=== PATIENT | male | born 1990 | race Caucasian/White ===

== ENCOUNTER 2024-01-10 11:55 | Outpatient (AMB) | payer OTHER, SELFPAY ==
--- NOTE | 2024-01-10 12:02 | AM.OFFWIN_ITS ---
Intake Vital Signs 01/10/24 12:07 01/10/24 12:55 Height 5 ft 6 in Weight 237 lb 4 oz BMI 38.3 BP 142/102 H Blood Pressure Location Lt brachial Position Sitting Pulse 122 H 104 H Pulse Source Pulse Oximeter Auscultation Temp 98.1 F Temp Source Oral Pulse Oximetry (%) 100 Oxygen Delivery Method Room Air Intake Visit Reasons: [employer] Loss of voice Intake Note: Pt is here today for sore through been for about 2wks Patient Tobacco Use Status: Never used Tobacco Allergies No Known Allergies Allergy (Verified 01/10/24 12:08) HPI HPI Comments History of Present Illness Details Patient presents to the walk-in today for sick visit Complaints of sore throat for last 5 days Denies known sick contacts Reports loss of voice when he's at work and must speak loudly for hours Tolerating p.o., denies nausea, vomiting Denies headaches, fevers, chest pain, syncope, dizziness, weakness or difficulty managing secretions PFSH Social History Patient Tobacco Use Status: Never used Tobacco Review of Systems Const All systems reviewed & are unremarkable except as noted in HPI and below Physical Exam Vital Signs: Last Vital Signs Temp 98.1 F 01/10/24 12:07 Pulse 122 H 01/10/24 12:07 BP 142/102 H 01/10/24 12:07 Pulse Ox 100 01/10/24 12:07 Oxygen Delivery Method Room Air 01/10/24 12:07 BMI result Body Mass Index 38.3 General: awake, alert, oriented. Answers questions appropriately. Fully engaged in examination. Skin: warm, dry, intact HEENT: TMs intact bilaterally, no redness. Posterior pharynx without erythema or exudate. Moist oral mucosa. Sclera without icterus or injection. Cardiac: External chest normal in appearance. Respiratory: LSCTAB. Abdomen: without gross distension. Neurological: Oriented to person, place, time and situation. Thought process intact. Psychiatric: Appropriate mood and affect. Good judgment and insight. Results AMB Rapid Strep AMB Rapid Strep Negative Last Edit by Dutch Abdi CMA on 01/10/24 12 :39 Assessment & Plan Assessment & Plan (1) Pharyngitis: Code(s): J02.9 - Acute pharyngitis, unspecified Plan Rapid strep negative Prednisone 40 mg p.o. daily x5 days Cepacol cough drops as needed Rest, drink plenty of fluids, tylenol or motrin as needed. Follow up with pcp or in clinic for any new or worsening symptoms. Go to ER for shortness of breath, chest pain, palpitations, weakness, dizziness. Orders: Orders AMB Rapid Strep Screen Today Z13.9 - Encounter for screening, unspecified Medications: New prednisone 40 mg (2 x 20 mg) PO DAILY 5 days 10 tabs 0RF benzocaine-menthol 15-2.6 mg (Cepacol Sore Throat (benzocaine-menthol)) 1 pierre mucous membrane Q2-4H PRN 16 ea 0RF pain Coding Level of Care Code New Pt Level 3 (15555) Diagnoses Pharyngitis J02.9
[2024-01-10 12:07] VITALS: BP 142/102; PULSE 122; TEMP 36.7; O2SAT 100; BMI 38.3
[2024-01-10 12:55] VITALS: PULSE 104
== END 2024-01-10 13:19 | disposition home or self-care (01) ==
PROVIDERS: Visit Provider Registered Nurse Emergency
DX: J02.9 Acute pharyngitis, unspecified (principal)
CPT/HCPCS: 87880; 99203

== ENCOUNTER 2024-03-25 09:16 | Outpatient (AMB) | payer OTHER, SELFPAY ==
[2024-03-25 09:54] VITALS: BP 144/80; PULSE 105; TEMP 37.1; O2SAT 97; BMI 38.4
--- NOTE | 2024-03-25 09:54 | MHC.OFFWIV ---
Intake Vital Signs 03/25/24 09:54 Height 5 ft 6 in Weight 238 lb BMI 38.4 BP 144/80 H Blood Pressure Location Lt brachial Position Sitting Pulse 105 H Pulse Source Pulse Oximeter Temp 98.8 F Temp Source Oral Pulse Oximetry (%) 97 Oxygen Delivery Method Room Air Intake Visit Reasons: EP Flu symotoms Intake Note: Pt is here today c/o flu like sx's: coughing and bodyaches Patient Tobacco Use Status: Never used Tobacco Allergies minoxidil Adverse Reaction (Verified 03/25/24 10:48) rash Medication List - Last Reconciled 03/25/24 by Quita Mckeon, STUDENT SERVICES COUNSELOR- No Known Home Meds HPI HPI Comments History of Present Illness Details 33-year-old male here today with COVID-19. He reports the onset of symptoms on . Since onset, his symptoms have mildly improved. His fever got as high as 103. Today he complains of generalized fatigue, body aches, cough and fever. Using DayQuil and NyQuil at home with short-lived relief. He did at home COVID test which he shows me the results today which were positive. Exam Awake alert NAD, mildly ill-appearing Sclera and conjunctiva clear bilat Nares patent, turbinates within normal limits, no sinus tenderness with palpation bilat TM intact with mild erythema on the left, clear on the right MMM, pharynx WNL RRR LS CTAB Plan Paxlovid & Tessalon. Encouraged to use ibuprofen and Tylenol alternating for the fever chills and body aches. [place] hydration. Diet as tolerated. This note is constructed using voice recognition software. While every effort has been made to ensure accuracy in vibrator equipment tester, still errors may have been included Sometimes, these errors may affect the content or meaning of the given sentence . Isolation and Precautions for People with COVID-19 Updated November 26, 2022 If you were exposed to COVID-19, you should start taking precautions. Isolation and Exposure If you have COVID-19, you can spread the virus to others. There are precautions you can take to prevent spreading it to others: isolation, masking, and avoiding contact with people who are at high risk of getting very sick. Isolation is used to separate people with confirmed or suspected COVID-19 from those without COVID-19. These recommendations do not change based on COVID-19 hospital admission levels. If you have COVID-19, also see additional information on treatments that may be available to you. This information is intended for a general audience. Healthcare professionals should see Ending Isolation and Precautions for People with COVID-19. This [facility] guidance is meant to supplement?not replace?any federal, state, local, territorial, or [place] health and safety laws, rules, and regulations. For Healthcare Professionals: Ending Isolation and Precautions for People with COVID-19 When to Isolate Regardless of vaccination status, you should isolate from others when you have COVID-19. You should also isolate if you are sick and suspect that you have COVID-19 but do not yet have test results. If your results are positive, follow the full isolation recommendations below. If your results are negative, you can end your isolation. IF YOU TEST Negative You can end your isolation IF YOU TEST Positive Follow the full isolation recommendations below When you have COVID-19, isolation is counted in days, as follows: If you had no symptoms Day 0 is the day you were tested (not the day you received your positive test result) Day 1 is the first full day following the day you were tested If you develop symptoms within 10 days of when you were tested, the clock restarts at day 0 on the day of symptom onset If you had symptoms Day 0 of isolation is the day of symptom onset, regardless of when you tested positive Day 1 is the first full day after the day your symptoms started Isolation If you test positive for COVID-19, stay home for at least 5 days and isolate from others in your home. You are likely most infectious during these first 5 days. Wear a high-quality mask if you must be around others at home and in public. Do not go places where you are unable to wear a mask. For travel guidance, see CDC?s Travel webpage. Do not travel. Stay home and separate from others as much as possible. Use a separate bathroom, if possible. Take steps to improve ventilation at home, if possible. Don?t share personal household items, like cups, towels, and utensils. Monitor your symptoms. If you have an emergency warning sign (like trouble breathing), seek emergency medical care immediately. Learn more about what to do if you have COVID-19. Ending Isolation End isolation based on how serious your COVID-19 symptoms were. Loss of taste and smell may persist for weeks or months after recovery and need not delay the end of isolation. If you had no symptoms You may end isolation after day 5. If you had symptoms and: Your symptoms are improving You may end isolation after day 5 if: You are fever-free for 24 hours (without the use of fever-reducing medication). Your symptoms are not improving Continue to isolate until: You are fever-free for 24 hours (without the use of fever-reducing medication). Your symptoms are improving. 1 If you had symptoms and had: Moderate illness (you experienced shortness of breath or had difficulty breathing) You need to isolate through day 10. Severe illness (you were hospitalized) or have a weakened immune system You need to isolate through day 10. Consult your doctor before ending isolation. Ending isolation without a viral test may not be an option for you. If you are unsure if your symptoms are moderate or severe or if you have a weakened immune system, talk to a healthcare provider for further guidance. Regardless of when you end isolation Until at least day 11: Avoid being around people who are more likely to get very sick from COVID-19. Remember to wear a high-quality mask when indoors around others at home and in public. Do not go places where you are unable to wear a mask until you are able to discontinue masking (see below). For travel guidance, see CDC?s Travel webpage. Removing Your Mask After you have ended isolation, when you are feeling better (no fever without the use of fever-reducing medications and symptoms improving), Wear your mask through day 10. OR If you have access to antigen tests, you should consider using them. With two sequential negative tests 48 hours apart, you may remove your mask sooner than day 10. Note: If your antigen test results1 are positive, you may still be infectious. You should continue wearing a mask and wait at least 48 hours before taking another test. Continue taking antigen tests at least 48 hours apart until you have two sequential negative results. This may mean you need to continue wearing a mask and testing beyond day 10. After you have ended isolation, if your COVID-19 symptoms recur or worsen, restart your isolation at day 0. Talk to a healthcare provider if you have questions about your symptoms or when to end isolation. [1] As noted in the Food and Drug Administration labeling for authorized [id number] antigen tests, negative test results do not rule out SARS-CoV-2 infection and should not be used as the sole basis for treatment or patient management decisions, including infection control decisions. Last Updated November 26, 2022 [facility] Social History Patient Tobacco Use Status: Never used Tobacco Physical Exam Vital Signs: Last Vital Signs Temp 98.8 F 03/25/24 09:54 Pulse 105 H 03/25/24 09:54 BP 144/80 H 03/25/24 09:54 Pulse Ox 97 03/25/24 09:54 Oxygen Delivery Method Room Air 03/25/24 09:54 BMI result Body Mass Index 38.4 Assessment & Plan Assessment & Plan (1) COVID-19: Code(s): U07.1 - COVID-19 Plan: . Plan . Medications: New nirmatrelvir-ritonavir 300 mg (150 mg x 2)-100 mg (Paxlovid) take TWO 150 mg tablets of nirmatrelvir with ONE 100 mg tablet of ritonavir twice daily for 5 days PO 30 ea 0RF benzonatate 100 mg PO TID 10 days PRN 30 caps 1RF cough Coding Level of Care Code Est Pt Level 3 (15380) Diagnoses COVID-19 U07.1
== END 2024-03-25 11:00 | disposition home or self-care (01) ==
PROVIDERS: Visit Provider Nurse Practitioner Family
DX: U07.1 COVID-19 (principal)
CPT/HCPCS: 99213